=== PATIENT | female | born 1985 | race Caucasian/White ===

== ENCOUNTER 2018-07-17 16:36 | Outpatient (CLI) | payer BC ==
[~2018-07-17] VITALS: Ht 167.6 cm; Wt 78.2 kg
[2018-07-17 16:58] VITALS: BP 109/61; PULSE 80; TEMP 98.1
[2018-07-17] MEDS ORDERED: PRENATAL MVI PO (17:05)
== END 2018-07-17 19:27 | disposition home or self-care (01) ==
LOC: LDRO 16:36
DX: O62.9 Abnormality of forces of labor, unspecified (principal); Z3A.40 40 weeks gestation of pregnancy

== ENCOUNTER 2018-07-18 03:58 | Inpatient (IN) | payer BC ==
[~2018-07-18] VITALS: Ht 15.2 cm; Wt 78.2 kg
[2018-07-18] VITALS (39 sets, daily range): BP systolic 94–137; BP diastolic 50–79; PULSE 66–136; TEMP 97.9–98.4
[~2018-07-18 03:58] MED LIST: PRENATAL MVI PO
[2018-07-18 04:41] LABS: BASO % 0.3 % (0.0-2.0); EOS % 0.3 % (0-4.0); GRAN # 9.8 (1.4-6.5); GRAN % 83.8 % (42.2-75.2); LYMPH % 8.4 % (20.0-51.0); MEAN CELL VOLUME 92 fl (80.0-100.0); MEAN CORPUSCULAR HEMOGLOBIN 31 pg (27.0-31.0); MEAN CORPUSCULAR HGB CONC 33 g/dl (33.0-37.0); MEAN PLATELET VOLUME 13.5 fl (7.4-10.4); MONO # 0.8 (0.1-0.6); MONO % 6.5 % (1.7-9.3); PLATELET COUNT 125 K/mm3 (130-400); RED BLOOD COUNT 3.94 M/mm3 (4.10-5.30); REDCELL DISTRIBUTION WIDTH-CV 13.8 % (11.5-14.5)
[2018-07-18 04:42] LABS: HEMATOCRIT 36.2 % (37.0-47.0)
[2018-07-19 00:45] VITALS: BP 121/76; PULSE 76; TEMP 98.1
[2018-07-19 09:02] VITALS: BP 108/64; PULSE 75; TEMP 98.3
[2018-07-19] MEDS ORDERED: PERCOCET 325 MG1 TA2 PO (10:47)
[2018-07-19] MEDS ORDERED: MOTRIN 800800 MG/TAB PO (10:47)
[2018-07-19 11:04] LABS: BASO % 0.2 % (0.0-2.0); EOS # 0.1 (0.0-0.7); EOS % 0.4 % (0-4.0); GRAN # 12.7 (1.4-6.5); GRAN % 88.3 % (42.2-75.2); LYMPH # 0.9 (1.2-3.4); LYMPH % 6.1 % (20.0-51.0); MEAN CELL VOLUME 92 fl (80.0-100.0); MEAN CORPUSCULAR HGB CONC 34 g/dl (33.0-37.0); MEAN PLATELET VOLUME 13.3 fl (7.4-10.4); MONO # 0.6 (0.1-0.6); MONO % 4.4 % (1.7-9.3); PLATELET COUNT 118 K/mm3 (130-400); RED BLOOD COUNT 3.08 M/mm3 (4.10-5.30); REDCELL DISTRIBUTION WIDTH-CV 14.2 % (11.5-14.5)
[2018-07-19 11:12] LABS: HEMATOCRIT 28.4 % (37.0-47.0); HEMOGLOBIN 9.5 g/dl (12.5-16.0); MEAN CORPUSCULAR HEMOGLOBIN 31 pg (27.0-31.0)
[2018-07-19 17:47] VITALS: BP 114/61; PULSE 86; TEMP 98
[2018-07-19 20:30] VITALS: BP 104/57; PULSE 79; TEMP 97.6
[2018-07-20 05:29] VITALS: BP 114/72; PULSE 83
[2018-07-20 08:20] VITALS: BP 110/79; PULSE 92; TEMP 98.5
== END 2018-07-20 12:10 | disposition home or self-care (01) | DRG 806 ==
LOC: LDRO 03:58 → LDR 04:15 → OB 15:00
PROVIDERS: Obstetrics & Gynecology
PROC: 10E0XZZ Delivery of Products of Conception, External Approach (ICD-10-PCS; principal; 2018-07-18)
PROC: 0HQ9XZZ Repair Perineum Skin, External Approach (ICD-10-PCS; 2018-07-18)
PROC: 0UQMXZZ Repair Vulva, External Approach (ICD-10-PCS; 2018-07-18)
PROC: 0UQMXZZ Repair Vulva, External Approach (ICD-10-PCS; 2018-07-18)
DX: O70.0 First degree perineal laceration during delivery (principal); O99.12 Other diseases of the blood and blood-forming organs and certain disorders involving the immune mechanism complicating childbirth; Z37.0 Single live birth; O71.82 Other specified trauma to perineum and vulva; Z3A.40 40 weeks gestation of pregnancy; O26.893 Other specified pregnancy related conditions, third trimester; Z67.41 Type O blood, Rh negative; D69.6 Thrombocytopenia, unspecified
CPT/HCPCS: J2590; J2791; J7120

== ENCOUNTER → 2018-07-22 | Outpatient (CLI) | payer BC ==
[~2018-07-22] MED LIST changes: +MOTRIN 800800 MG/TAB PO; +PERCOCET 325 MG1 TA2 PO
== END ==
LOC: LAC 15:18
DX: Z39.1 Encounter for care and examination of lactating mother (principal); Z71.89 Other specified counseling

== ENCOUNTER 2019-08-06 19:02 | Emergency (ER) | payer BC ==
[~2019-08-06] VITALS: Ht 167.6 cm; Wt 59.5 kg
[2019-08-06 19:15] VITALS: TEMP 98.4
[2019-08-06 20:33] LABS: BASO % 0.3 % (0.0-2.0); EOS # 0.1 (0.0-0.7); GRAN # 7.8 (1.4-6.5); GRAN % 79.9 % (42.2-75.2); HEMOGLOBIN 12.3 g/dl (12.5-16.0); LYMPH # 1.2 (1.2-3.4); LYMPH % 12.2 % (20.0-51.0); MEAN CELL VOLUME 92 fl (80.0-100.0); MEAN CORPUSCULAR HEMOGLOBIN 31 pg (27.0-31.0); MEAN CORPUSCULAR HGB CONC 33 g/dl (33.0-37.0); MEAN PLATELET VOLUME 11.6 fl (7.4-10.4); MONO # 0.6 (0.1-0.6); PLATELET COUNT 179 K/mm3 (130-400); RED BLOOD COUNT 4.02 M/mm3 (4.10-5.30)
[2019-08-06 22:10] VITALS: BP 108/63; PULSE 65
== END 2019-08-06 22:10 | disposition home or self-care (01) ==
LOC: COL.ER 19:02
PROVIDERS: Nurse Practitioner
DX: O03.9 Complete or unspecified spontaneous abortion without complication (principal)
CPT/HCPCS: J7030

== ENCOUNTER 2020-09-15 12:02 | Inpatient (IN) | payer BC ==
[2020-09-15] VITALS (32 sets, daily range): BP systolic 89–136; BP diastolic 51–80; PULSE 59–95; TEMP 97.4–98.1
[~2020-09-15] VITALS: Ht 167.6 cm; Wt 75.5 kg
--- NOTE | 2020-09-15 12:10 | NUR ---
PATIENT HERE TO LR 2 FOR LABOR CHECK. PATIENT HERE FOR LEAKING OF FLUID THAT STARTED AT 1000. PATIENT DENIES CONTRACTIONS AND BLOOD PATIENT CHANGED INTO GOWN, ON EFM, ASSESEMENT COMPLETE. SVE AMNISWAB TURNED BLUE, NOT A TON OF FLUID. PATIENT STATES SHE HAD 2 BIG GUSHES AT HOME. PATIENT STATES HER AND HER HAD SEXUAL INTERCOURSE LAST NIGHT. DR MOHR CALLED AND NOTIFIED. ORDERED PATIENT TO GET UP AND WALK THEN REEVALUATE. PATIENT WALKED AND BACK ON EFM. AMNISWAB POSTIIVE, FUID NOTED ON PAD AND IN VAGINA. REPORT GIVEN TO MORENO OROZCO
[2020-09-15 14:00] LABS: BASO % 0.2 % (0.0-2.0); EOS % 0.2 % (0-4.0); GRAN # 10.5 (1.4-6.5); GRAN % 85.7 % (42.2-75.2); HEMOGLOBIN 10.7 g/dl (12.5-16.0); LYMPH # 0.9 (1.2-3.4); LYMPH % 7.2 % (20.0-51.0); MEAN CELL VOLUME 88 fl (80.0-100.0); MEAN CORPUSCULAR HEMOGLOBIN 30 pg (27.0-31.0); MEAN CORPUSCULAR HGB CONC 34 g/dl (33.0-37.0); MEAN PLATELET VOLUME 12.4 fl (7.4-10.4); MONO # 0.8 (0.1-0.6); MONO % 6.2 % (1.7-9.3); PLATELET COUNT 164 K/mm3 (130-400); RED BLOOD COUNT 3.62 M/mm3 (4.10-5.30); REDCELL DISTRIBUTION WIDTH-CV 13.5 % (11.5-14.5)
[2020-09-15 14:04] LABS: HEMATOCRIT 31.9 % (37.0-47.0)
--- NOTE | 2020-09-15 17:41 | NUR ---
1540 - Pt requesting epidural at this time. Linda Villanueva CRNA notified. 1602 - Linda Villanueva CRNA to pt bedside. Pt repositioned sitting upright on side of bed for epidural insertion. Test dose given at 1613. Pt repositioned supine with head slightly elevated, WR. 1620 - Pt reporting continual discomfort on left side. Epidural button pressed by pt. Pt repositioned WL. 1658 - Dr. Warren to pt bedside. SVE per provider /-1. Per physician, after Becerra placement, continue position changes and may increase Pitocin to 30mu/ml/hr. 1705 - Becerra placed. Pt repositioned sitting upright in bed.
--- NOTE | 2020-09-15 18:50 | NUR ---
Recurrent variables noted. Pt repositioned. SVE per this RN C/+1. Dr. Almazan on unit. Requested for delivery. Pitocin shut off. Pt prepped for delivery. 1855-Pt begins pushing with ctx. Moves vertex well. 1858- of viable female attended by Dr. Almazan. Cord clamped x 2 and cut from umbilicus. Infant dried and placed on mother's abdomen. Care of to Erica West RN. Apgars . 1901- of placenta. Fundus firm at umbilicus. Bleeding WNL. Pitocin bolus infusing per protocol. Second degree laceration repaired per Dr. Almazan. Pericare performed. Ice pack applied. Bed locked in low position. Call light within reach. No questions or concerns at this time.
[2020-09-16 02:28] VITALS: BP 93/46; PULSE 68
[2020-09-16 07:40] VITALS: BP 104/59; PULSE 67; TEMP 98.1
--- NOTE | 2020-09-16 09:43 | NUR ---
Initial visit; Parents thanked [employer] for offering congratulations and God's blessings for the of their daughter. [employer] thanked family for choosing [facility].
[2020-09-16 11:45] VITALS: BP 116/70; PULSE 79; TEMP 99
[2020-09-16 15:30] VITALS: BP 117/71; PULSE 78; TEMP 98.6
[2020-09-16 19:46] VITALS: BP 109/53; PULSE 70; TEMP 98.4
[2020-09-17 08:23] VITALS: BP 113/70; PULSE 83; TEMP 97.8
[2020-09-17] MEDS ORDERED: IBU800 M1 PO (08:46)
== END 2020-09-17 11:00 | disposition home or self-care (01) | DRG 807 ==
LOC: LDRO 12:02 → LDR 12:46 → OB 21:44
PROVIDERS: ADMIT Student in an Organized Health Care Education/Training Program
PROC: 10E0XZZ Delivery of Products of Conception, External Approach (ICD-10-PCS; principal; 2020-09-15)
PROC: 0KQM0ZZ Repair Perineum Muscle, Open Approach (ICD-10-PCS; 2020-09-15)
DX: O70.1 Second degree perineal laceration during delivery (principal); Z37.0 Single live birth; Z3A.38 38 weeks gestation of pregnancy; O26.893 Other specified pregnancy related conditions, third trimester
CPT/HCPCS: J2590; J7120

== ENCOUNTER → 2020-09-24 | Outpatient (CLI) | payer BC ==
[~2020-09-24] MED LIST changes: +IBU800 M1 PO
--- NOTE | 2020-09-24 12:46 | NUR ---
Pt, Neri Vera, presents for outpatient consult with nine day old baby girl, Bella Vera, for a evaluation because she was at 9% wt loss at one week of age. Bella was born on [birth year] and weighed 6#15.1oz (3150 gms). Pt has experience previous baby but did have to use a nipple shield that was eventually weaned. Pt has been nursing Bella with a shield since because of nipple pain although the nipple everts well at this time. Today Bella weighs 6#5oz (2864 gms) which is the same from two days ago with Dr. Shaffer. Pt has recorded 6 feedings per 24 hours for the last 48 hours, stating that Bella is sleepy and does not wake easily for feedings. Occassionally she has good feeding cues and nurses well, but generally sleepy. For each of the two previous days Bella has had one yellow bowel movement and pt has recorded 2 voids per day. LC attempts to get baby latched without nipple shield but she just won't hold onto it. Nipple shield is placed, it takes a few minutes for her to engage but eventually Bella nurses about 20 minutes on the right and After bilateral nursing Bella has a weight gain of 30 gms. POC: Three step feeding plan. Increase number of feedings to 8 per 24 hours, breastfeed, supplement 1-2oz EBM, pump bilaterally at least 6 times per day. F/U: Dr. Shaffer this afternoon, this LC in one week. Questions invited and answered.
== END ==
LOC: LAC 09:53
DX: Z39.1 Encounter for care and examination of lactating mother (principal); Z71.89 Other specified counseling

== ENCOUNTER → 2020-10-01 | Outpatient (CLI) | payer BC ==
--- NOTE | 2020-10-01 13:28 | NUR ---
Pt, Neri Vera, presents for follow up consult with 16 day old baby girl, Bella Vera. They were seen one week ago for difficult latch, low weight gain, and low milk transfer. Bella was born on [birth year] and weighed 6@15.1oz (3150 gms). Last week she weighed 6#5oz (2863 gms) and transfered 30 ml per pre and post feed weights with a nipple shield. Bella has been getting better a latching and now refuses the nipple shield. She is offered breast, then supplemened 2oz p breastfeedings. Pt is able to pump 4oz breastmilk after , so supply is not a problem. Today Bella weighs 7#0.2oz (3182 gms). She latches and nurses bilaterally, she appears to be latched well, weight gain after nursing R/L/R was 22gms (0.8oz). Bella is obviously still hungry. LC evaluates Bella's mouth with a gloved finger and notes the palate is elevated and when the finger sweeps around the inside of the gum line, the frenulum interrupts a clean sweep. On the bottle Bella looses milk from the corners of the mouth, and seems to struggle keep a good latch on the bottle. She drinks about 2oz over ~10-15 minutes. LC discusses possible tongue tie, noting it's difficult to define what a tongue tie by look alone. Bella can lift her tongue to the top gum, but also has milk transfer difficulties. Pt will consider tongue tie with her . POC: Continue breast/bottle/pumping. F/U: One month with Dr. Shaffer, with this LC as desired, pending Bella's progress. Questions invited and answered.
== END ==
LOC: LAC 12:59
DX: Z39.1 Encounter for care and examination of lactating mother (principal); Z71.89 Other specified counseling

== ENCOUNTER → 2020-10-07 | Outpatient (CLI) | payer BC ==
--- NOTE | 2020-10-07 12:38 | NUR ---
Pt, Neri Vera, presents for outpatient consult with three week old baby girl, Bella Vera. Her accompanies her as well. This family has been working with this LC for difficult latch and decreased milk transfer. Please see previous consult notes. 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 Bella was born on [birth year] and weighed 6#15.1 oz (3150 gms). On 10/01/20 she weighed 7#0.2oz (3182 gms). She had a 22gm gain from on that date. Today Bella weighs 7#11.4 oz (3498 gms). She is eating 3oz EBM by bottle q 2-[address] breast, advised on flanging top lip and opening baby's jaw to encourage tongue extension once baby is latched. After nursing the right breast Bella has a weight gain of 52gms (1.8oz); she didn't settle into a good feeding on the left, seemed to be fussy more than interested in feeding. Pt states latch more comfortable and stronger. Family advised to monitor Bella for signs of contentment, and optional to supplement by bottle based on Bella's effort at . POC: Breastfeed ad khang, supplement if indicated, follow post-proceedure care instructions provided. F/U: Dr. Shaffer for one month appt, this LC as needed, pending progress. Questions invited and answered.
== END ==
LOC: LAC 12:12
DX: Z39.1 Encounter for care and examination of lactating mother (principal); Z71.89 Other specified counseling